=== PATIENT | female | born 1960 | race Caucasian/White ===

== ENCOUNTER → 2016-07-08 | Outpatient (CLI) | payer OTHER ==
--- NOTE | 2016-07-08 12:52 | MR ---
EXAMINATION TYPE: MR knee RT wo con DATE OF EXAM: 07/08/2016 12:27 PM COMPARISON: NONE HISTORY: Rt. knee pain TECHNIQUE: Multiplanar, multisequence imaging of the right knee is performed without IV contrast. FINDINGS: MEDIAL MENISCUS: Oblique tear posterior horn medial meniscus. Anterior horn and body are intact. LATERAL MENISCUS: Anterior and posterior horns are intact without tear. CRUCIATE LIGAMENTS: The anterior and posterior cruciate ligaments are intact and unremarkable. COLLATERAL LIGAMENTS: The medial collateral ligament and lateral collateral ligament complex are inta ct and unremarkable. EXTENSOR MECHANISM: Visualized quadriceps and patellar tendons are intact. EFFUSION: No significant suprapatellar joint effusion. POPLITEAL CYST: Daly's cyst measures 2.7 x 1 cm TRICOMPARTMENT SPACES: Intact CARTILAGE: Intact BONE MARROW SIGNAL: No focal abnormal marrow signal is appreciated. OTHER: No additional significant abnormality is appreciated. IMPRESSION: 1. Posterior horn medial meniscal tear. 2. Daly's cyst.
== END | disposition home or self-care (01) ==
LOC: RADMRIMAIN 11:51
PROVIDERS: ATTEND Family Medicine
DX: M23.221 Derangement of posterior horn of medial meniscus due to old tear or injury, right knee (principal); M71.21 Synovial cyst of popliteal space [Baker], right knee

== ENCOUNTER 2017-06-22 10:01 | Day surgery (SDC) | payer OTHER ==
[2017-06-11 08:40] VITALS: BMI 32.5
[~2017-06-22 10:01] MED LIST: DEXAMETHASONE SOD PHOSPHATE 10 MG/ML 1 ML VIAL IV ONE; HYDROmorphone 0.5 MG/0.5 ML SYRINGE IVP PRN; LACTATED RINGERS 1,000 ML IV SCH; LIDOCAINE 1% 20 ML VIAL (10MG/ML) FOR IV START INTRADERMA PRN; MIDAZOLAM 2 MG/2 ML VIAL IV PRN; ONDANSETRON 4 MG/2 ML VIAL IVP ONE; Pre Op ABX Message 1 EACH MISC MISCELLANE ONE; SCOPOLAMINE 1.5MG/72HR PATCH TRANSDERM ONE
[2017-06-22] MEDS ORDERED: Acetaminophen-Codeine 300-30mg TAB PO PRN ×2 (10:33)
--- NOTE | 2017-06-22 10:33 | P.HPOB ---
History of Present Illness H&P Date: 06/22/17 Chief Complaint: endometrial hyperplasia, polyp This is a 56-year-old 2 para 2 that presented to my office in April with complaints of postmenopausal bleeding. Endometrial biopsy was performed at that time revealing a disordered proliferative endometrium 40 on non- atypical hyperplasia with individual polyp. Patient has denied any current bleeding but given the findings of this not atypical hyperplasia, endometrial polyp the decision was made to proceed with hysteroscopy, dilation and curettage. Review of Systems Constitutional: Denies fatigue, Denies fever Cardiovascular: Denies chest pain Respiratory: Denies cough, Denies dyspnea Gastrointestinal: Denies constipation, Denies diarrhea Genitourinary: Denies dysuria Menstruation: Reports postmenopausal Past Medical History Past Medical History: GERD/Reflux History of Any Multi-Drug Resistant Organisms: None Reported Past Surgical History: Appendectomy, Cholecystectomy, Tubal Ligation Past Anesthesia/Blood Transfusion Reactions: Family History of Problems w/ Anesthesia, Motion Sickness Additional Past Anesthesia/Blood Transfusion Reaction / Comment(s): Sister with Nausea & Vomiting after anesthesia for days afterwards. Past Psychological History: No Psychological Hx Reported Smoking Status: Former smoker Past Alcohol Use History: None Reported Additional Past Alcohol Use History / Comment(s): Smoked for 33yrs, quit 10 yrs ago. Past Drug Use History: None Reported - Past Family History Mother Family Medical History: No Reported History Medications and Allergies Home Medications Medication Instructions Recorded Confirmed Type Multivitamins, Thera [Multivitamin 1 tab PO DAILY 06/11/17 06/22/17 History (formulary)] Ranitidine HCl [Zantac] 150 mg PO DAILY PRN 06/11/17 06/22/17 History Allergies Allergy/AdvReac Type Severity Reaction Status Date / Time acetaminophen [From Vicodin] Allergy Nausea & Verified 06/22/17 10:28 Vomiting codeine Allergy Nausea & Verified 06/22/17 10:28 Vomiting hydrocodone [From Vicodin] Allergy Nausea & Verified 06/22/17 10:28 Vomiting hydromorphone [From Dilaudid] Allergy Nausea & Verified 06/22/17 10:28 Vomiting Exam Osteopathic Statement: *. No significant issues noted on an osteopathic structural exam other than those noted in the History and Physical/Consult. - OBG Physical Exam Abdomen: bowel sounds normal Cervix: Normal in appearance Uterus: normal size Assessment and Plan (1) Endometrial hyperplasia Narrative/Plan: Plan hysteroscopy, dilatation and curettage. Surgery was reviewed with the patient in detail questions are answered and informed is obtained. Patient will take Cytotec prior to this procedure secondary to cervical stenosis Current Visit: Yes Status: Acute Code(s): N85.00 - ENDOMETRIAL HYPERPLASIA, UNSPECIFIED SNOMED Code(s): 293036207 (2) Endometrial polyp Current Visit: Yes Status: Acute Code(s): N84.0 - POLYP OF CORPUS UTERI SNOMED Code(s): 45848353 Time with Patient: Less than 30
[2017-06-22] MEDS ORDERED: NON-FORMULARY DRUG (Ranitidine Hcl [Zantac] 150 MG) PO PRN (10:34)
[2017-06-22] MEDS ORDERED: LIDOCAINE 1% INJ 10MG/ML (20 ML MDV) ONE (10:51)
[2017-06-22] MEDS ORDERED: MIDAZOLAM 2 MG/2 ML VIAL ONE (10:51)
[2017-06-22] MEDS ORDERED: PROPOFOL 10 MG/ML 20 ML VIAL IV ONE (10:51)
[2017-06-22] MEDS ORDERED: KETOROLAC 30 MG/ML 1 ML VIAL ONE (10:51)
[2017-06-22] MEDS ORDERED: SUCCINYLCHOLINE CHLORIDE 100 MG/5 ML SYR IV ONE (10:51)
[2017-06-22] MEDS ORDERED: fentaNYL (PF) 50 MCG/ML 2 ML AMP ONE (10:51)
--- NOTE | 2017-06-22 11:12 | P.OP ---
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 She was then prepped and draped in the normal sterile fashion a dorsal lithotomy position. R catheterization Spring the bladder clear yellow urine. Weighted speculum was placed in the posterior vaginal vault the anterior lip of the cervix was visualized and grasped with single-tooth tenaculum. Endocervical canal was then dilated to 16- Swiss and hysteroscope was placed through the cervix and for the endometrial cavity inspection the patient's endometrial cavity above-noted findings were visualized. The hysteroscope was removed and a sharp curettage was performed until gritty texture was noted in all 4 quadrants cavity. The specimen was then sent off to pathology for analysis. The single-tooth tenaculum taken off of the anterior lip of the cervix hemostasis was appreciated. COUNTS were correct 2 patient tolerated procedure well and was taken to the recovery room awake and in stable condition
[2017-06-22 11:24] VITALS: TEMP 97.3
[2017-06-22] MEDS ORDERED: ONDANSETRON 4 MG/2 ML VIAL IVP ONE (11:48)
[2017-06-22] MEDS ORDERED: MEPERIDINE 50 MG/ML SYRINGE IVP ONE ×2 (11:49→11:52)
[2017-06-22] MEDS ORDERED: METOCLOPRAMIDE 5 MG/ML 2 ML VIAL IVP ONE (11:54)
[2017-06-22 12:36] VITALS: RESP 18
[2017-06-22 12:59] VITALS: BP 120/72; PULSE 100
[2017-06-23] MEDS ORDERED: MULTIVITAMINS, THERA 1 EACH TAB PO SCH (12:00)
== END 2017-06-22 14:04 | disposition home or self-care (01) ==
LOC: OR 10:01
PROVIDERS: ATTEND Obstetrics & Gynecology Obstetrics
DX: N84.0 Polyp of corpus uteri (principal); Q51.3 Bicornate uterus; K21.9 Gastro-esophageal reflux disease without esophagitis; Z98.51 Tubal ligation status; Z87.891 Personal history of nicotine dependence; Z79.899 Other long term (current) drug therapy; Z88.5 Allergy status to narcotic agent; Z88.6 Allergy status to analgesic agent
CPT/HCPCS: 88305; 58558; J2250; J1100; J2765; J2175; J2405; J2001; J3010; J1885; J0330; J2704

== ENCOUNTER → 2019-03-09 | Outpatient (CLI) | payer OTHER ==
--- NOTE | 2019-04-18 12:44 | EM ---
EVENT MONITOR 30 DAY EVENT MONITOR: Patient during her 30 day event monitor had several transmissions. The rhythm was predominantly sinus with 3-beat run of PAT. No symptoms were reported. This was an auto capture. Isolated PVCs were seen on 2 occasions. Again this was isolated PVCs and on an auto capture. Almost all the transmissions sent by the patient reveal sinus rhythm. FINAL IMPRESSION: Unremarkable 30 day event monitor. MMODL / IJN: [id number] /
== END | disposition home or self-care (01) ==
LOC: RADECHMAIN 11:24
PROVIDERS: ATTEND Family Medicine
DX: R42 Dizziness and giddiness (principal); R55 Syncope and collapse; R00.2 Palpitations
CPT/HCPCS: 93270

== ENCOUNTER → 2021-06-12 | Outpatient (CLI) | payer OTHER ==
[~2021-06-12] MED LIST changes: +BAMLANIVIMAB (EUA) 700 MG, ETESEVIMAB (EUA) 1,400 MG in SODIUM CHLORIDE 0.9% 100 ML IVPB ONE; -DEXAMETHASONE SOD PHOSPHATE 10 MG/ML 1 ML VIAL IV ONE; -HYDROmorphone 0.5 MG/0.5 ML SYRINGE IVP PRN; -LACTATED RINGERS 1,000 ML IV SCH; -LIDOCAINE 1% 20 ML VIAL (10MG/ML) FOR IV START INTRADERMA PRN; -MIDAZOLAM 2 MG/2 ML VIAL IV PRN; -ONDANSETRON 4 MG/2 ML VIAL IVP ONE; -Pre Op ABX Message 1 EACH MISC MISCELLANE ONE; -SCOPOLAMINE 1.5MG/72HR PATCH TRANSDERM ONE; +SODIUM CHLORIDE 0.9% 50 ML IVPB ONE; +SODIUM CHLORIDE 0.9% 500 ML 500 ML in EMPTY BAG 1 BAG IV PRN
[2021-06-12 14:04] VITALS: TEMP 97.3
[2021-06-12 14:09] VITALS: PULSE 101; RESP 16
[2021-06-12 14:28] VITALS: BP 131/82
== END ==
LOC: PROCWHC3 13:00
PROVIDERS: ATTEND Family Medicine
DX: U07.1 COVID-19 (principal); E66.9 Obesity, unspecified; Z87.891 Personal history of nicotine dependence; Z88.6 Allergy status to analgesic agent; Z88.5 Allergy status to narcotic agent; Z68.30 Body mass index [BMI] 30.0-30.9, adult
CPT/HCPCS: 96360; J3490; M0245